=== PATIENT | female | born 1995 | race Caucasian/White ===

== ENCOUNTER 2018-10-30 13:26 | Emergency (ER) | payer SELFPAY ==
[~2018-10-30] VITALS: Ht 157.5 cm; Wt 47.2 kg
[~2018-10-30 13:26] MED LIST: BIRTH CONTROL PILL PO; CEPH500C PO; HYDR-757 PO; IBUP-1773 PO; METR500T PO; NAPR550T PO; PHEN200T27 PO
--- OUTSIDE RECORDS SUMMARY | 2018-10-30 13:30 | XMS REPORT ---
Author Author Migration, Doctor Organization [facility] Address Unknown Phone Unavailable Care Team Providers Care Application Defense Manager Name Role Phone Migration, Doctor Unavailable Unavailable PROBLEMS Type Condition ICD9-CM Code VRO33-BK Code Onset Dates Condition Status SNOMED Code Problem Nausea with vomiting 787.01 Active 61620825 Problem Dehydration 276.51 Active 70346763 Problem Screening examination for venereal disease V74.5 Active 371486778 Problem Abdominal pain, left lower quadrant 789.04 Active 246315031 Problem Abdominal pain, unspecified site 789.00 Active 28842524 Problem Vomiting alone 787.03 Active 031571037 ALLERGIES No Information ENCOUNTERS Encounter Location Date Diagnosis [facility] [address], [place] [address] Sep, [facility] [address], [place] [address] Sep, [facility] [id number] [place] [address] Jul, [facility] [id number], [place] [address] Feb, [facility] [address], [place] [address] Feb, [facility] [id number] [place] [address] Feb, [facility] [address], [place] [address] Feb, [facility] [id number] [place] [address] Feb, [facility] [address], [place] [address] Jan, [facility] [address] [address], [place] [address] Jan, [facility] [address], [place] [address] Jan, [facility] [address], [place] [address] Jan, [facility] [address], [place] [address] Jan, [facility] [address], [place] [address] Aug, [facility] [address], [place] [address] Aug, [facility] [address] [address] Jun, [facility] [address], [place] [address] Jun, [facility] [id number] [address] Dec, [facility] [id number] [address] Jun, IMMUNIZATIONS No Known Immunizations SOCIAL HISTORY Never Assessed [place] [place] V[place] SIGNS MEDICATIONS Unknown Medications RESULTS No Results PROCEDURES No Known procedures INSTRUCTIONS MEDICATIONS ADMINISTERED No Known Medications
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
--- OUTSIDE RECORDS SUMMARY | 2018-10-30 13:30 | XMS REPORT ---
Author Author Migration, Doctor Organization [facility] Address Unknown Phone Unavailable Care Team Providers Care Group Director Name Role Phone Migration, Doctor Unavailable Unavailable PROBLEMS Type Condition ICD9-CM Code BDN13-JR Code Onset Dates Condition Status SNOMED Code Problem Nausea with vomiting 787.01 Active 91896156 Problem Dehydration 276.51 Active 96357525 Problem Screening examination for venereal disease V74.5 Active 664739362 Problem Abdominal pain, left lower quadrant 789.04 Active 043710334 Problem Abdominal pain, unspecified site 789.00 Active 62283168 Problem Vomiting alone 787.03 Active 681233170 ALLERGIES No Information ENCOUNTERS Encounter Location Date Diagnosis [facility] [address], [place] [address] Sep, [facility] [address], [place] [address] Sep, [facility] [id number] [place] [address] Jul, [facility] [id number], [place] [address] Feb, [facility] [address], [place] [address] Feb, [facility] [id number] [place] [address] Feb, [facility] [address], [place] [address] Feb, [facility] [id number] [place] [address] Feb, [facility] [address], [place] [address] Jan, [facility] [address] [address], [place] [address] Jan, [facility] [id number], [place] [address] Jan, [facility] [address] [facility] [id number] [address] Jan, [facility] [id number], [place] [address] Jan, [facility] [address], [place] [address] Aug, [facility] [address] [address] Aug, [facility] [address], [place] [address]- [address] Jun, [facility] [address], [place] [address] Jun, [facility] [id number], [place] [address] Dec, [facility] [id number], [place] [address] Jun, IMMUNIZATIONS No Known Immunizations SOCIAL HISTORY Never Assessed [place] V[place]IT [place] [place]ITAL SIGNS MEDICATIONS Medication Instructions Dosage Frequency Start Date End Date Duration Status Diflucan 150 mg take 1 tablet by Oral route once 1 time per day Feb Active Flagyl 500 mg 4 tablet by Oral route 1 time per day full glass of water. No alcohol intake advised for 48 hours. Jan, Active RESULTS No Results PROCEDURES No Known procedures INSTRUCTIONS MEDICATIONS ADMINISTERED No Known Medications
--- OUTSIDE RECORDS SUMMARY | 2018-10-30 13:31 | XMS REPORT | Continuity of Care Document ---
Author Organization Unknown Address Unknown Allergies Active Description Code Type Severity Reaction Onset Reported/Identified Relationship to Patient Clinical Status Yes No Known Drug Allergies [id number] Drug Allergy Unknown N/A 12/12/2013 Medications There is no data. Problems Date Dx Coded Attending Type Code Diagnosis Diagnosed By 12/26/2012 SEAN TANNER APRN N 276.51 DEHYDRATION (Na, H2O) 12/26/2012 SEAN TANNER APRN N 787.03 VOMITING ALONE 12/26/2012 WHITE DDSZOE D 276.51 DEHYDRATION (Na, H2O) 12/26/2012 WHITE DDSZOE D 787.03 VOMITING ALONE 12/26/2012 HARISH BAIG DO K 276.51 DEHYDRATION (Na, H2O) 12/26/2012 CANDACE BAIG DOA K 787.03 VOMITING ALONE 06/30/2013 SEAN TANNER APRN N 787.01 NAUSEA WITH VOMITING 06/30/2013 SEAN TANNER APRN N 789.00 ABDOMINAL PAIN UNSPECIFIED SITE 06/30/2013 WHITE DDS, ZOE D 787.01 NAUSEA WITH VOMITING 06/30/2013 WHITE DDS, ZOE D 789.00 ABDOMINAL PAIN UNSPECIFIED SITE 06/30/2013 CANDACE BAIG DOA K 787.01 NAUSEA WITH VOMITING 06/30/2013 CANDACE BAIG DOA K 789.00 ABDOMINAL PAIN UNSPECIFIED SITE 12/12/2013 ISA LERNER, CECY Sams Ot 620.2 01/07/2014 FENECH WENDY MANNING Ot 620.2 01/07/2014 FENECH WENDY MANNING Ot 625.9 02/03/2014 ESTRELLA WOOTEN Ot 599.0 02/03/2014 ESTRELLA WOOTEN Ot 625.9 02/03/2014 ESTRELLA WOOTEN Ot 789.09 02/10/2014 HARISH BAIG DO 789.04 ABDOMINAL PAIN LEFT LOWER QUADRANT 02/10/2014 HARISH BAIG DO V74.5 STD SCREEN 04/28/2014 FENECH DO, WENDY S Ot 620.8 04/28/2014 FENECH DO, WENDY S Ot V72.83 04/28/2014 FENECH DO, WENDY S Ot V74.8 04/28/2014 FENECH DO, WENDY S Ot 620.2 07/22/2014 FENECH DO, WENDY S Ot 620.8 07/22/2014 FENECH DO, WENDY S Ot V72.83 07/22/2014 FENECH DO, WENDY S Ot V74.8 07/22/2014 FENECH DO, WENDY S Ot 620.2 07/22/2014 FENECH DO, WENDY S Ot 620.2 05/02/2015 FENECH DO, WENDY S Ot 620.8 05/02/2015 FENECH DO, WENDY S Ot V72.83 05/02/2015 FENECH DO, WENDY S Ot V74.8 05/02/2015 FENECH DO, WENDY S Ot 620.2 05/24/2015 FENECH DO, WENDY Kumar Ot R10.2 05/24/2015 FENECH DO, WENDY Kumar Ot Z87.42 Procedures Code Description [place] [address] INFLUENZA A & B (IN-HOUSE) 06/30/2013 31353 TRICHOMONAS (IN-HOUSE) 02/10/2014 62849 GC/CHLAM PROBE ([facility]) 02/11/2014 47734 CULTURE UROGENITAL 02/13/2014 Results There is no data. Encounters ACCT No. Visit Date/Time Discharge Status Pt. Type Provider Facility Loc./Unit Complaint [id number] 02/10/2014 15:20:00 02/10/2014 23:59:59 CLS Outpatient HARISH BAIG DO [place] [id number] 08/13/2013 10:46:00 08/13/2013 23:59:59 CLS Outpatient ZOE GARCIA DDS [id number] 06/30/2013 12:55:00 06/30/2013 23:59:59 CLS Outpatient SEAN TANNER APRN [id number] 07/08/2012 15:15:22 RECURRING [id number] 05/02/2015 12:21:00 05/02/2015 23:59:59 CLS Outpatient WENDY SALES DO S [facility] [id number] 03/12/2014 10:13:00 03/12/2014 23:59:59 CLS Outpatient WENDY SALES DO [facility] RAD [id number] 02/03/2014 09:48:00 02/03/2014 12:51:00 DIS Emergency ESTRELLA WOOTEN [facility] ER [id number] 01/07/2014 07:46:00 01/07/2014 15:30:00 DIS Outpatient WENDY SALES DO [facility] [id number] 12/29/2013 09:39:00 12/29/2013 23:59:59 CLS Outpatient WENDY SALES DO [facility] PREOP [id number] 12/12/2013 11:27:00 12/12/2013 16:10:00 DIS Emergency CECY MOSS MD [facility] ER 02/22/2010 05/22/2018 15:44:13 05/22/2018 23:59:59 CLS Outpatient
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
[2018-10-30] MEDS ORDERED: ACHD5005 PO (15:20)
[2018-10-30 15:30] VITALS: BP 142/105
== END 2018-10-30 15:24 | disposition home or self-care (01) ==
LOC: EDUNIT# 13:26 → ER 13:27
DX: S42.112A Displaced fracture of body of scapula, left shoulder, initial encounter for closed fracture (principal); F12.10 Cannabis abuse, uncomplicated; F17.210 Nicotine dependence, cigarettes, uncomplicated; Z98.51 Tubal ligation status; Z87.448 Personal history of other diseases of urinary system; V89.2XXA Person injured in unspecified motor-vehicle accident, traffic, initial encounter
CPT/HCPCS: 71250